=== PATIENT | female | born 1980 | race African-American/Black ===

== ENCOUNTER 2022-07-13 21:17 | Emergency (ER) | payer BC, OTHER ==
[2022-07-13 21:39] VITALS: BP 127/88; PULSE 86; RESP 18; TEMP 98; BMI 36.3
[2022-07-14 00:33] LABS: EPI CELLS 18 /uL (0-25.1); HYALINE CASTS 2 /uL (0-3.1); PH,URINE 5.5 (5.0-8.0); URINE APPEARANCE CLEAR; URINE BACTERIA 204 /uL (0-1359); URINE BILIRUBIN NEGATIVE (NEGATIVE); URINE COLOR YELLOW; URINE GLUCOSE (UA) NEGATIVE (NEGATIVE); URINE KETONE NEGATIVE (NEGATIVE); URINE LEUK ESTERASE 2+ (NEGATIVE); URINE NITRITE NEGATIVE (NEGATIVE); URINE PROTEIN TRACE (NEGATIVE); URINE RBC 12 /uL (0-23.9); URINE UROBILINOGEN 0.2 mg/dL (0.2-1.0); URINE WBC 74 /uL (0-25.8)
[2022-07-14 00:36] LABS: BASO % 1.2 % (0-2.0); EOS % 3.2 % (0-4.5); HEMOGLOBIN 11.8 GM/dL (10.7-15.3); MCH 28.8 pg (25.7-33.7); MCHC 33.6 g/dl (32.0-36.0); MEAN CELL VOLUME 85.8 fl (80-96); MEAN PLT VOLUME 8.9 fl (7.5-11.1); NEUT % 46.6 % (42.8-82.8); PLATELET COUNT 311 10^3/uL (134-434); RBC 4.09 M/mm3 (3.60-5.2); RDW 15.2 % (11.6-15.6); WHITE BLOOD COUNT 5.9 K/mm3 (4.0-10.0)
[2022-07-14 00:38] LABS: INR 1.2 (0.83-1.09); PROTHROMBIN TIME (PATIENT) 13.9 SEC (9.7-13.0)
[2022-07-14 00:47] LABS: CHLORIDE 101 mmol/L (98-107); SODIUM 137 mmol/L (136-145)
[2022-07-14 00:50] LABS: ALBUMIN 3.4 g/dl (3.4-5.0); ANION GAP 8 MMOL/L (8-16); BLOOD UREA NITROGEN 15.3 mg/dL (7-18); CO2 28 mmol/L (21-32); GLUCOSE,RANDOM 90 mg/dL (74-106)
[2022-07-14 00:53] LABS: SGPT/ALT 18 U/L (13-61)
[2022-07-14 00:54] LABS: CREATININE 1.1 mg/dL (0.55-1.3); SGOT/AST 16 U/L (15-37)
[2022-07-14 00:55] LABS: BILIRUBIN,TOTAL 0.4 mg/dL (0.2-1); TOT PROT 7.7 g/dl (6.4-8.2)
[2022-07-14 00:56] LABS: ALK PHOS 72 U/L (45-117)
[2022-07-14 01:16] LABS: CALCIUM 6.6 mg/dL (8.5-10.1)
[2022-07-14] MEDS ORDERED: CALCIUM CARBONATE 650 MG TABLET PO STA (02:46)
[2022-07-14] MEDS ORDERED: CALCITRIOL 0.25 MCG CAPSULE (FP) PO STA (02:46)
[2022-07-14] MEDS ORDERED: CALCIUM (OYSTER SHELL) 500 MG TABLET (FP) PO STA (03:00)
== END 2022-07-14 03:29 | disposition home or self-care (01) ==
LOC: JER 21:17
DX: R55 Syncope and collapse (principal)
CPT/HCPCS: 36415; 70450-TC; 71046-TC-FY; 76817-TC; 80053; 81003; 83735; 84484; 84702; 84703; 85025; 85610; 93005; 93010; 99281-25

== ENCOUNTER 2022-07-15 21:42 | Emergency (ER) | payer OTHER ==
[2022-07-15 21:49] VITALS: BMI 36.3
[2022-07-15] MEDS ORDERED: ONDANSETRON 4 MG/2 ML VIAL IVPUSH ONE (22:54)
[2022-07-15] MEDS ORDERED: LACTATED RINGERS SOLUTION 1,000 ML/1,000 ML INFUS.BAG IV SCH (23:00)
[2022-07-15] MEDS ORDERED: ONDANSETRON 4 MG/2 ML VIAL ONE (23:03)
[2022-07-15 23:39] LABS: EOS % 2.8 % (0-4.5); HEMOGLOBIN 10.7 GM/dL (10.7-15.3); LYMPH % 35.5 % (8-40); MCH 28.7 pg (25.7-33.7); MCHC 33.3 g/dl (32.0-36.0); NEUT % 48.7 % (42.8-82.8); PLATELET COUNT 283 10^3/uL (134-434); RBC 3.72 M/mm3 (3.60-5.2); RDW 15.2 % (11.6-15.6); WHITE BLOOD COUNT 6.8 K/mm3 (4.0-10.0)
[2022-07-15 23:59] LABS: CHLORIDE 104 mmol/L (98-107); POTASSIUM 3.2 mmol/L (3.5-5.1); SODIUM 138 mmol/L (136-145)
[2022-07-16 00:01] LABS: ALBUMIN 3.1 g/dl (3.4-5.0); ANION GAP 4 MMOL/L (8-16); BLOOD UREA NITROGEN 17.1 mg/dL (7-18); CO2 30 mmol/L (21-32); GLUCOSE,RANDOM 94 mg/dL (74-106)
[2022-07-16 00:04] LABS: CREATININE 1.3 mg/dL (0.55-1.3); SGOT/AST 17 U/L (15-37); SGPT/ALT 17 U/L (13-61)
[2022-07-16 00:06] LABS: BILIRUBIN,TOTAL 0.2 mg/dL (0.2-1); TOT PROT 7.3 g/dl (6.4-8.2)
[2022-07-16 00:07] LABS: ALK PHOS 69 U/L (45-117)
[2022-07-16 00:52] LABS: CALCIUM 6.4 mg/dL (8.5-10.1)
[2022-07-16 01:10] VITALS: RESP 16
[2022-07-16] MEDS ORDERED: CALCIUM GLUCONATE 10% - 1,000 MG/10 ML VIAL IVPB ONE (01:11)
[2022-07-16] MEDS ORDERED: CALCIUM GLUCONATE 10% - 1,000 MG/10 ML VIAL ONE (01:34)
[2022-07-16] MEDS ORDERED: POTASSIUM CHLORIDE ORAL LIQUID 20 MEQ/15 ML PO ONE (04:13)
[2022-07-16] MEDS ORDERED: POTASSIUM CHLORIDE ORAL LIQUID 20 MEQ/15 ML ONE (04:23)
[2022-07-16 05:39] VITALS: BP 129/92; PULSE 78; TEMP 97.8
== END 2022-07-16 06:29 | disposition home or self-care (01) ==
LOC: JER 21:42
PROC: 3E033GC Introduction of Other Therapeutic Substance into Peripheral Vein, Percutaneous Approach (ICD-10-PCS; principal; 2022-07-15)
PROC: 3E033GC Introduction of Other Therapeutic Substance into Peripheral Vein, Percutaneous Approach (ICD-10-PCS; 2022-07-15)
DX: O46.91 Antepartum hemorrhage, unspecified, first trimester (principal); Z3A.01 Less than 8 weeks gestation of pregnancy
CPT/HCPCS: 36415; 76817-TC; 80053; 84702; 85025; 86850; 86900; 86901; 99284-25